=== PATIENT | male | born 1955 | race Caucasian/White ===

== ENCOUNTER 2019-12-30 22:33 | Inpatient (IN) | payer MEDICARE ==
[~2019-12-30] VITALS: Ht 167.6 cm; Wt 72.6 kg
[2019-12-30] MEDS ORDERED: DILTIAZEM 24HR120 M3 PO (22:44)
[2019-12-30 23:35] LABS: HEMATOCRIT 42.2 % (42.0-54.0); HEMOGLOBIN 15.2 g/dL (13.5-17.5); LYMPHOCYTES 8.1 % (15-50); MCH 34.1 pg (26.0-34.0); MCV 94.6 fL (80.0-100.0); NEUTROPHILS 79.7 % (40-80); PLATELET COUNT 251 10x3/uL (130-400); RBC 4.46 10x6/uL (4.20-6.10); RDW 11.5 % (11.5-14.5); WBC 12.1 10x3/uL (4.8-10.8)
[2019-12-30 23:51] LABS: CALC OSMOLALITY 263 mosm/kg (275-300); CALCIUM 7.9 mg/dL (8.5-10.1); CARBON DIOXIDE 26.6 mmol/L (21.0-32.0); CHLORIDE - SERUM 98 mmol/L (98-107); CREATININE - SERUM 1.1 mg/dL (0.6-1.3); GLUCOSE 104 mg/dL (74-106); SODIUM 133 mmol/L (136-145); UREA NITROGEN 8 mg/dL (7-18); eGFR NON AFRICAN AMERICAN 71 mL/min (90-120)
[2019-12-31] VITALS (8 sets, daily range): BP systolic 129–164; BP diastolic 79–88; BMI 25.8
[2019-12-31 00:10] LABS: ALBUMIN 3.1 g/dL (3.4-5.0); ALKALINE PHOSPHATASE 99 U/L (30-120); ALT (SGPT) 21 U/L (10-68); C-REACTIVE PROTEIN 3.7 mg/dL (0.0-0.9); CKMB 0.6 U/L (0.0-3.6); CREATINE KINASE 49 UL (21-232); FERRITIN 343 ng/mL (3-244); PROTEIN - SERUM 6.9 g/dL (6.4-8.2); TROPONIN-I < 0.017 ng/mL (0.000-0.060); URIC ACID 5.4 mg/dL (2.6-7.2)
--- NOTE | 2019-12-31 08:00 | NUR ---
CALLED TELEMETRY TO GET MACHINE FOR PATIENT. THEY ONLY HAD ONE TELEMETRY AVAILABLE FOR CHEST PAINS. ADDED TO THE LIST.
--- NOTE | 2019-12-31 08:22 | NUR ---
PT SITTING UP IN BED EATING. STATES PAIN IS A 2 OUT OF 10. THAT HE GOT UP AND WENT TO THE BATHROOM WITH LESS PAIN THAN BEFORE AT HOME. CL IN REACH. NO NEEDS AT THIS TIME. WCTM
[2019-12-31 14:00] LABS: APTT 27.2 SECONDS (22.8-39.4); INR 1.05 (0.85-1.17); PROTIME 13.6 SECONDS (11.6-15.0)
[2019-12-31 15:46] LABS: BASOPHILS 0.1 % (0-2); HEMATOCRIT 37.6 % (42.0-54.0); HEMOGLOBIN 13.1 g/dL (13.5-17.5); IMMATURE GRANULOCYTES 0.3 % (0-5); LYMPHOCYTES 10.4 % (15-50); MCH 33.6 pg (26.0-34.0); MCHC 34.8 g/dL (31.0-37.0); MCV 96.4 fL (80.0-100.0); MEAN PLATELET VOLUME 8.7 fL (7.4-10.4); NEUTROPHILS 78.2 % (40-80); PLATELET COUNT 193 10x3/uL (130-400); RDW 11.9 % (11.5-14.5)
[2019-12-31 15:57] LABS: MAGNESIUM - SERUM 1.7 mg/dL (1.8-2.4)
[2019-12-31 16:10] LABS: GLUCOSE NEGATIVE (NEGATIVE); KETONE NEGATIVE (NEGATIVE); NITRITE NEGATIVE (NEGATIVE)
[2019-12-31 16:11] LABS: BILIRUBIN NEGATIVE (NEGATIVE); UROBILINOGEN NORMAL (NORMAL)
[2020-01-01 04:00] VITALS: BP 161/92
[2020-01-01 05:21] LABS: BASOPHILS 0.1 % (0-2); EOSINOPHILS 0.9 % (0-7); HEMATOCRIT 36.3 % (42.0-54.0); IMMATURE GRANULOCYTES 0.1 % (0-5); LYMPHOCYTES 11.2 % (15-50); MCH 33.8 pg (26.0-34.0); MCHC 35.8 g/dL (31.0-37.0); MEAN PLATELET VOLUME 8.4 fL (7.4-10.4); MONOCYTES 8.2 % (2-11); NEUTROPHILS 79.5 % (40-80); PLATELET COUNT 206 10x3/uL (130-400); RBC 3.85 10x6/uL (4.20-6.10); RDW 11.7 % (11.5-14.5); WBC 8.5 10x3/uL (4.8-10.8)
[2020-01-01 05:44] LABS: MCV 94.3 fL (80.0-100.0)
[2020-01-01 06:06] LABS: ALBUMIN 2.4 g/dL (3.4-5.0); ALKALINE PHOSPHATASE 78 U/L (30-120); ALT (SGPT) 17 U/L (10-68); BILIRUBIN - TOTAL 0.78 mg/dL (0.2-1.3); CALC OSMOLALITY 263 mosm/kg (275-300); CALCIUM 7.3 mg/dL (8.5-10.1); CARBON DIOXIDE 26.3 mmol/L (21.0-32.0); CHLORIDE - SERUM 97 mmol/L (98-107); CREATININE - SERUM 0.9 mg/dL (0.6-1.3); GLUCOSE 85 mg/dL (74-106); MAGNESIUM - SERUM 1.5 mg/dL (1.8-2.4); PHOSPHOROUS 3.3 mg/dL (2.5-4.9); POTASSIUM - SERUM 3.4 mmol/L (3.5-5.1); PROTEIN - SERUM 5.8 g/dL (6.4-8.2); SODIUM 134 mmol/L (136-145); eGFR NON AFRICAN AMERICAN 90 mL/min (90-120)
[2020-01-01 06:20] LABS: UREA NITROGEN 5 mg/dL (7-18)
--- NOTE | 2020-01-01 07:21 | NUR ---
I have reviewed this patient and I concur with the Shift Assessment completed by the Licensed Practical Nurse today this shift.
[2020-01-01 10:09] VITALS: BP 160/84
[2020-01-01 13:35] VITALS: Ht 167.6 cm; Wt 72.6 kg
[2020-01-01 13:36] VITALS: BP 164/90
[2020-01-01 18:41] VITALS: BP 148/79
[2020-01-01 20:00] VITALS: BP 128/82
[2020-01-01 20:17] LABS: ERYTHROCYTE SEDIMENTATION RATE 22 mm/hr (0-20)
[2020-01-02 04:00] VITALS: BP 114/64
[2020-01-02 07:30] LABS: ALBUMIN 2.8 g/dL (3.4-5.0); ALKALINE PHOSPHATASE 83 U/L (30-120); ALT (SGPT) 18 U/L (10-68); BILIRUBIN - TOTAL 0.49 mg/dL (0.2-1.3); CALC OSMOLALITY 265 mosm/kg (275-300); CALCIUM 7.9 mg/dL (8.5-10.1); CARBON DIOXIDE 22.7 mmol/L (21.0-32.0); CHLORIDE - SERUM 97 mmol/L (98-107); CREATININE - SERUM 0.9 mg/dL (0.6-1.3); POTASSIUM - SERUM 3.8 mmol/L (3.5-5.1); PROTEIN - SERUM 6.2 g/dL (6.4-8.2); SODIUM 133 mmol/L (136-145); UREA NITROGEN 6 mg/dL (7-18); eGFR NON AFRICAN AMERICAN 90 mL/min (90-120)
[2020-01-02 07:32] LABS: BASOPHILS 0 % (0-2); EOSINOPHILS 0 % (0-7); GLUCOSE 130 mg/dL (74-106); HEMATOCRIT 38.3 % (42.0-54.0); HEMOGLOBIN 13.7 g/dL (13.5-17.5); IMMATURE GRANULOCYTES 0.2 % (0-5); LYMPHOCYTES 2.6 % (15-50); MAGNESIUM - SERUM 1.9 mg/dL (1.8-2.4); MCH 33.7 pg (26.0-34.0); MCHC 35.8 g/dL (31.0-37.0); MCV 94.3 fL (80.0-100.0); MEAN PLATELET VOLUME 8.6 fL (7.4-10.4); MONOCYTES 0.9 % (2-11); NEUTROPHILS 96.3 % (40-80); PLATELET COUNT 221 10x3/uL (130-400); RBC 4.06 10x6/uL (4.20-6.10); RDW 11.7 % (11.5-14.5); WBC 9.8 10x3/uL (4.8-10.8)
[2020-01-02 10:13] VITALS: BP 168/104
[2020-01-02 14:34] VITALS: BP 159/72; BP 159/78
[2020-01-02 18:44] VITALS: BP 150/78
[2020-01-02 20:00] VITALS: BP 170/88
--- NOTE | 2020-01-02 20:00 | NUR ---
PATIET RESTING IN BED WATCHING TV. NO S/S OF ACUTE DISTRESS. NO C/O AT THIS TIME. PATIENT HAS LEFT FOREARM, NORMAL SALINE @ 100 ML/HR. IV IS PATNET WITHOUT REDNESS, SWELLING, OR TENDERNESS. PATIENT HAS REDNESS ON RIGHT FOOT. CALL LIGHT WITHIN REACH. WILL CONTINUE TO MONITOR.
[2020-01-03 04:00] VITALS: BP 144/81
--- NOTE | 2020-01-03 05:15 | NUR ---
I have reviewed this patient and I concur with the Shift Assessment completed by the Licensed Practical Nurse today this shift.
[2020-01-03 06:51] LABS: BASOPHILS 0 % (0-2); EOSINOPHILS 3.1 % (0-7); HEMATOCRIT 34.8 % (42.0-54.0); HEMOGLOBIN 12.5 g/dL (13.5-17.5); IMMATURE GRANULOCYTES 1.8 % (0-5); MCH 34.2 pg (26.0-34.0); MCHC 35.9 g/dL (31.0-37.0); MCV 95.3 fL (80.0-100.0); MEAN PLATELET VOLUME 8.5 fL (7.4-10.4); MONOCYTES 2.5 % (2-11); NEUTROPHILS 89.6 % (40-80); PLATELET COUNT 215 10x3/uL (130-400); RBC 3.65 10x6/uL (4.20-6.10); RDW 11.7 % (11.5-14.5); WBC 8.5 10x3/uL (4.8-10.8)
[2020-01-03 07:25] LABS: ALBUMIN 2.4 g/dL (3.4-5.0); ALKALINE PHOSPHATASE 65 U/L (30-120); ALT (SGPT) 17 U/L (10-68); BILIRUBIN - TOTAL 0.34 mg/dL (0.2-1.3); CALC OSMOLALITY 278 mosm/kg (275-300); CALCIUM 7.9 mg/dL (8.5-10.1); CARBON DIOXIDE 25.2 mmol/L (21.0-32.0); CHLORIDE - SERUM 106 mmol/L (98-107); CREATININE - SERUM 0.7 mg/dL (0.6-1.3); GLUCOSE 138 mg/dL (74-106); MAGNESIUM - SERUM 2.2 mg/dL (1.8-2.4); POTASSIUM - SERUM 3.8 mmol/L (3.5-5.1); SODIUM 140 mmol/L (136-145); eGFR NON AFRICAN AMERICAN > 90 mL/min (90-120)
[2020-01-03 07:31] LABS: UREA NITROGEN 8 mg/dL (7-18)
[2020-01-03 09:12] LABS: ANA REFLEX - DIRECT Negative (Negative)
[2020-01-03 10:59] VITALS: BP 148/93
[2020-01-03 13:02] VITALS: BP 138/72
--- NOTE | 2020-01-03 13:43 | NUR ---
NUTRITION F/U CHART REVIEWED, PT VISIT. TOLERATING AHA DIET WITH GOOD INTAKE RECENT MEALS. PT REPORTS HE HAS BEEN ENJOYING THE MEALS. WILL CONTINUE TO PROVIDE DIET, MONITOR PO INTAKE. RD FOLLOWING
[2020-01-03] MEDS ORDERED: MEDROL DOSE PACK4 MG PO (14:41)
--- NOTE | 2020-01-06 04:21 | NUR ---
LATE ENTRY: LR STOPPED TIME 0240 ROCEPHIN STOPPED TIME 0246
== END 2020-01-03 16:50 | disposition home or self-care (01) | DRG 603 ==
LOC: D.ER 22:33 → D.MS 12-31 03:03
PROVIDERS: Family Medicine; ADMIT Family Medicine; ATTEND Family Medicine
DX: L03.116 Cellulitis of left lower limb (principal); R00.2 Palpitations; I48.91 Unspecified atrial fibrillation; I10 Essential (primary) hypertension; M10.9 Gout, unspecified; F32.9 Major depressive disorder, single episode, unspecified; M19.90 Unspecified osteoarthritis, unspecified site

== ENCOUNTER 2020-08-15 13:12 | Emergency (ER) | payer MEDICARE ==
[2020-06-17 12:36] VITALS: Ht 167.6 cm; Wt 72.7 kg
[~2020-08-15] VITALS: Ht 167.6 cm; Wt 72.7 kg
[~2020-08-15 13:12] MED LIST: BAYER CHEWABLE81 MG PO; CARDIZEM CD180 MG PO; DILTIAZEM 24HR120 M3 PO; LIPITOR40 MG PO; MEDROL DOSE PACK4 MG PO; PLAVIX75 MG PO; PREDNISOLONE AC15 ML RIGHT EYE; VRAYLAR3 MG PO
[2020-08-15 13:16] VITALS: BP 160/99
[2020-08-15] MEDS ORDERED: ULTRAM50 MG PO (13:20)
[2020-08-15] MEDS ORDERED: KLOR-CON 1010 MEQ PO (13:20)
[2020-08-15] MEDS ORDERED: CEPHALEXIN500 M1 PO (13:21)
[2020-08-15 13:50] LABS: BASOPHILS 0.1 % (0-2); EOSINOPHILS 0.1 % (0-7); HEMATOCRIT 39.4 % (42.0-54.0); HEMOGLOBIN 14.1 g/dL (13.5-17.5); IMMATURE GRANULOCYTES 0.1 % (0-5); LYMPHOCYTE ABS# 0.79 10x3/uL (1.32-3.57); LYMPHOCYTES 10.1 % (15-50); MCH 32.9 pg (26.0-34.0); MCHC 35.8 g/dL (31.0-37.0); MCV 91.8 fL (80.0-100.0); MEAN PLATELET VOLUME 8.5 fL (7.4-10.4); MONOCYTES 9.1 % (2-11); NEUTROPHIL ABS# 6.26 10x3/uL (1.78-5.38); NEUTROPHILS 80.5 % (40-80); PLATELET COUNT 184 10x3/uL (130-400); RBC 4.29 10x6/uL (4.20-6.10); RDW 13.3 % (11.5-14.5); WBC 7.8 10x3/uL (4.8-10.8)
[2020-08-15 14:02] LABS: CALC OSMOLALITY 277 mosm/kg (275-300); CALCIUM 8.6 mg/dL (8.5-10.1); CARBON DIOXIDE 27.1 mmol/L (21.0-32.0); CHLORIDE - SERUM 102 mmol/L (98-107); GLUCOSE 112 mg/dL (74-106); POTASSIUM - SERUM 3.5 mmol/L (3.5-5.1); SODIUM 139 mmol/L (136-145); UREA NITROGEN 9 mg/dL (7-18); eGFR NON AFRICAN AMERICAN 79 mL/min (90-120)
[2020-08-15 14:04] LABS: APTT 27.9 SECONDS (22.8-39.4); INR 1.1 (0.85-1.17); PROTIME 13.2 SECONDS (11.6-15.0)
[2020-08-15 14:08] LABS: ALBUMIN 3.1 g/dL (3.4-5.0); ALKALINE PHOSPHATASE 135 U/L (30-120); ALT (SGPT) 17 U/L (10-68); BILIRUBIN - TOTAL 1.13 mg/dL (0.2-1.3); C-REACTIVE PROTEIN 2.6 mg/dL (0.0-0.9); PROTEIN - SERUM 7.1 g/dL (6.4-8.2); URIC ACID 6.1 mg/dL (2.6-7.2)
[2020-08-15 14:53] LABS: ERYTHROCYTE SEDIMENTATION RATE 42 mm/hr (0-20)
[2020-08-15] MEDS ORDERED: PREDNISONE20 MG PO (15:10)
== END 2020-08-15 15:34 | disposition home or self-care (01) ==
LOC: D.ER 13:12
PROVIDERS: Family Medicine
DX: M12.831 Other specific arthropathies, not elsewhere classified, right wrist (principal); M79.672 Pain in left foot; M79.671 Pain in right foot; R79.82 Elevated C-reactive protein (CRP); M25.531 Pain in right wrist; I10 Essential (primary) hypertension